=== PATIENT | female | born 1965 | race Caucasian/White ===

== ENCOUNTER 2017-08-06 07:13 | Emergency (ER) | payer BC ==
[2017-08-06 07:26] VITALS: BP 121/76
--- NOTE | 2017-08-06 07:50 | UC ---
Respiratory Complaint HPI - HPI Summary HPI Summary: Pt with 10 days cough, productive green sputum, fatigue Pt states intermittent wheezing. chills, no fever. mild nausea, decreased po. No rash No abd pain. started with sinus congestion, now resolved Pt's medications reviewed this visit - History of Current Complaint Chief Complaint: UCRespiratory Stated Complaint: COUGH Time Seen by Provider: 08/06/17 07:22 Hx Obtained From: Patient Timing: Constant Severity Initially: Mild Severity Currently: Moderate Character: Cough: Productive, Sputum Description: - green Associated Signs And Symptoms: Positive: Chills, Wheezing, Nasal Congestion - Allergies/Home Medications Allergies/Adverse Reactions: Allergies Allergy/AdvReac Type Severity Reaction Status Date / Time No Known Allergies Allergy Verified 08/06/17 07:20 Home Medications: Home Medications Guaifenesin/Pseudo 600/60(NF) [Mucinex D 600/60 (NF)] 2 tab PO Q4H PRN 08/06/17 [History Confirmed 08/06/17] PMH/Surg Hx/FS Hx/Imm Hx Previously Healthy: Yes - Surgical History Surgical History: Yes Surgery Procedure, Year, and Place: hysterectomy, bowel resection, pins placed in hip, colostomy - Social History Occupation: Employed Full-time Lives: With Family Alcohol Use: Occasionally Substance Use Type: None Smoking Status (MU): Never Smoked Tobacco - Immunization History Most Recent Influenza Vaccination: not this season Review of Systems Constitutional: Chills, Fatigue ENT: Sinus Congestion Respiratory: Cough, Other - wheeze Cardiovascular: Negative Gastrointestinal: Negative Genitourinary: Negative Motor: Negative Neurovascular: Negative Musculoskeletal: Negative Neurological: Negative All Other Systems Reviewed And Are Negative: Yes Physical Exam Triage Information Reviewed: Yes Appearance: Well-Appearing - tired appearing, No Pain Distress, Well-Nourished Vital Signs: Initial Vital Signs Temp 98.6 F 08/06/17 07:21 Pulse 99 08/06/17 07:21 Resp 16 08/06/17 07:21 BP 121/76 08/06/17 07:21 Pulse Ox 98 08/06/17 07:21 Vital Signs Reviewed: Yes Eye Exam: Normal Eyes: Positive: Conjunctiva Clear ENT Exam: Normal ENT: Positive: Normal ENT inspection, Hearing grossly normal, Pharynx normal Dental Exam: Normal Neck exam: Normal Neck: Positive: Supple, Nontender Respiratory Exam: Normal Respiratory: Positive: Chest non-tender, Normal breath sounds, No respiratory distress, No accessory muscle use, Wheezing - few scattered wheeze + BS throughout speaking full, easy sentences Cardiovascular Exam: Normal Cardiovascular: Positive: RRR, No Murmur Abdominal Exam: Normal Abdomen Description: Positive: Nontender, No Organomegaly, Soft Musculoskeletal Exam: Normal Neurological Exam: Normal Psychological Exam: Normal Skin Exam: Normal UC Diagnostic Evaluation - Laboratory O2 Sat by Pulse Oximetry: 98 Respiratory Course/Dx - Course Course Of Treatment: Pt with 10 day cough with green sputum. ongoing fatigue. vss. wheeze scattered on exam. will rx abx, albuterol. otc cough suppression. hydrate. secretion precaution - Differential Dx/Diagnosis Provider Diagnoses: bronchitis Discharge - Discharge Plan Condition: Stable Disposition: HOME Prescriptions: Albuterol HFA INHALER* [Ventolin HFA Inhaler*] 1 puff INH Q4H PRN #1 mdi PRN Reason: wheeze Azithromycin TAB* [Zithromax TAB (Z-GRAEME) 250 mg #6 tabs] 2 tab PO .TODAY, THEN 1 DAILY #1 graeme Spacer/Aerosol-Holding Chamber [Aerochamber Mv] 1 mis PO Q4HR #1 mis Patient Education Materials: Acute Bronchitis (ED) Referrals: GISELA Lemus [Primary Care Provider] - Additional Instructions: - Stay well hydrated. Drink plenty of non-alcoholic, non-caffinated beverages - take antibiotics as prescribed - USe inhaler - 2 puffs every 4 hours today, then eveyr 4 hours as needed - Okay to use over the counter medication for cough - After you have been on antibiotics for 2 days - change your toothbrush and your pillowcase. These infections are spread by secretions - do NOT share eating or drinking utensils - clean items you share with other people such as iphone, computer mouse, TV remote, etc - Alternate ibuprofen (Advil, motrin) 600mg and tylenol eveyry 3 hours for pain or fever. - Call your doctor to schedule a follow-up appointment. Call your doctor or return with questions or concerns
== END 2017-08-06 08:07 | disposition home or self-care (01) ==
LOC: UCCORT 07:13
DX: J40 Bronchitis, not specified as acute or chronic (principal)
CPT/HCPCS: 99212; G0463

== ENCOUNTER 2017-09-24 08:11 | Emergency (ER) | payer BC ==
[2017-09-24 08:28] VITALS: BP 133/86
--- NOTE | 2017-09-24 08:48 | UC ---
Ear Complaint HPI - HPI Summary HPI Summary: Pt presents with mild vertigo that started this morning. Pt states worse when moves head quickly. states feels like eyes need to catch up. mild nausea pt states seemed a bit worse looking at computer. Pt with mild sense head is "filling up." no fevers, chills, rash. No cp, sob. No abd pain no n/v/d no meds taking. PT states was recently in [place] - was with sick contacts and thinks was dehydrated there. Pt denies other complaints. No kline, vision changes. No sore throat, sinus congestion. No h/o similar. 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 - Surgical History Surgical History: Yes Surgery Procedure, Year, and Place: hysterectomy, bowel resection, pins placed in hip, colostomy - Family History Known Family History: Positive: Hypertension - Social History Occupation: Employed Full-time Lives: With Family Alcohol Use: Occasionally Substance Use Type: None Smoking Status (MU): Never Smoked Tobacco - Immunization History Most Recent Influenza Vaccination: not this season Review of Systems Constitutional: Negative Skin: Negative Eyes: Negative ENT: Negative Respiratory: Negative Cardiovascular: Negative Neurovascular: Other - dizziness All Other Systems Reviewed And Are Negative: Yes Physical Exam Triage Information Reviewed: Yes Appearance: Well-Appearing, No Pain Distress, Well-Nourished Vital Signs: Initial Vital Signs Temp 98 F 09/24/17 08:23 Pulse 70 09/24/17 08:23 Resp 18 09/24/17 08:23 BP 133/86 09/24/17 08:23 Pulse Ox 100 09/24/17 08:23 Vital Signs Reviewed: Yes Eyes: Positive: Conjunctiva Clear, Other: - BIJU, EOM intact and full right sided 3 beat nystagmus, extinguising No photophobia no injection ENT Exam: Normal ENT: Positive: Normal ENT inspection, Hearing grossly normal, Other - left TM + fluid no erythema right TM no fluid mmoist no exudate Dental Exam: Normal Neck exam: Normal Neck: Positive: Supple, Nontender, No Lymphadenopathy Respiratory Exam: Normal Respiratory: Positive: Chest non-tender, Lungs clear, Normal breath sounds, No respiratory distress, No accessory muscle use Cardiovascular Exam: Normal Cardiovascular: Positive: RRR, No Murmur, Pulses Normal, Other: - no bruits Abdominal Exam: Normal Abdomen Description: Positive: Nontender, No Organomegaly Bowel Sounds: Positive: Present Musculoskeletal Exam: Normal Neurological Exam: Normal Neurological: Positive: Alert, Other: - no difficulty with balance CN 2-12 intact and full no difficulty with balance or ambulating Psychological Exam: Normal Psychological: Positive: Normal Response To Family Skin Exam: Normal Ear Complaint Course/Dx - Course Course Of Treatment: Pt with dizziness with head and eye movement. Pt with scant fluids in ear. pt with horizontal nystagmus. Will recommend flonase. decongestant. hydrate. d/w pt regarding and change in sx to ED. pt comfortable and in agreement with plan - Differential Dx/Diagnosis Provider Diagnoses: vertigo. ear congested Discharge - Discharge Plan Condition: Stable Disposition: HOME Prescriptions: Meclizine HCl [Meclizine 25] 25 mg PO Q8HR #15 tab Patient Education Materials: Vertigo (ED) Referrals: No Primary Care Phys,NOPCP [Primary Care Provider] - Additional Instructions: -The doctor that evaluated you today thinks your symptoms are related to vertigo and related to fluid in your ears -It is recommended you use nasal spray daily. -It is recommended you use a decongestant such as Claritin D, Lita-d, or Sudafed. It is okay to try just Claritin with the nasal spray first if the decongestant makes you shaky - Take meclizine as prescribed for dizziness - Stay well hydrated. Drink plenty of non-alcoholic, non-caffinated beverages - If you develop headaches, vomiting, fevers, vision changes or any other symptoms, it is recommended you go to the emergency department for additional evaluation or treatment - contact your doctor or return with question or concerns
== END 2017-09-24 09:14 | disposition home or self-care (01) ==
LOC: UCCORT 08:11
DX: R42 Dizziness and giddiness (principal); H83.8X2 Other specified diseases of left inner ear
CPT/HCPCS: 99212; G0463

== ENCOUNTER 2019-08-24 17:47 | Emergency (ER) | payer BC, OTHER ==
--- OUTSIDE RECORDS SUMMARY | 2019-08-24 19:33 | XMS REPORT | Continuity of Care Document ---
:1965 External Reference #:[id number] Author Name Kai York PA (transmitted by agent of provider Gatito Schwartz) Address [address], [address] [place] [address] Care Team Providers Name Role Phone Emelyn Louis, DIRECTOR OF CORPORATE REAL ESTATE - Family Care Team Information Videotape Operator [phone] Problems Active Problems Provider Date Benign essential hypertension Kai York PA Onset: 07/21/2019 Social History Type Date Description Comments Sex Unknown Tobacco Use Start: Unknown Never Smoked Cigarettes ETOH Use Currently consumes alcohol socially Tobacco Use Start: Unknown Patient has never smoked Recreational Drug Use Denies Drug Use Smoking Status Reviewed: 07/21/19 Patient has never smoked Allergies, Adverse Reactions, Alerts Description No Known Drug Allergies Medications Active Medications SIG Qnty Indications Ordering Provider Date Lisinopril 1 by mouth every Unknown 5mg Tablets day Calcium 600 + D 1 by mouth once Unknown daily [id number] Tablets Humira use under the Unknown 40mg/0.8ML PSKT skin every other week Vitamin Deficiency 1ml every month Unknown Injectable System-B12 1000mcg/ML Kit Immunizations Description No Information Available Vital Signs Date Vital Result Comment 07/21/2019 8:45am BP Systolic Sitting Right Arm 118 mmHg BP Diastolic Sitting Right Arm 78 mmHg Heart Rate 62 /min Respiratory Rate 16 /min Height 69 inches 5'9" Weight 133.00 lb BMI (Body Mass Index) 19.6 kg/m2 BSA (Body Surface Area) 1.74 m2 [place] body weight in kilograms 66 kg O2 % BldC Oximetry 98 % ra 01/19/2014 1:28pm BP Systolic Sitting Left Arm 122 mmHg BP Diastolic Sitting Left Arm 80 mmHg Height 69 inches 5'9" Weight 131.00 lb BMI (Body Mass Index) 19.3 kg/m2 BSA (Body Surface Area) 1.73 m2 Results Description No Information Available Procedures Date Code Description Status 07/21/2019 24240 EKG-Tracing And Report Completed Medical Devices Description No Information Available Encounters Type Date Location Provider Dx Diagnosis Office Visit 07/21/2019 Cardiology Office Kai York R07.9 Chest pain , 8:20a B., PA unspecified I10 Essential (primary) hypertension R60.0 Localized edema Assessments Date Code Description Provider 07/21/2019 R07.9 Chest pain, unspecified Kai York PA 07/21/2019 I10 Essential (primary) hypertension Kai York PA 07/21/2019 R60.0 Localized edema Kai York PA Plan of Treatment Future Appointment(s):08/20/2019 8:40 am - Kai York, JOHN at Cardiology Gxbxfa9607/21/2019 - Kai York, PAR07.9 Chest pain, unspecifiedNew Orders:Nuclear Stress Test, Cardiolite, Exercise, Ordered: Comments:We will order a nuclear stress test to evaluate the patient's ischemic potential.I10 Essential (primary) hypertensionComments:BP goal is < 130/80 mmHg. No changes.R60.0 Localized edemaNew Orders:Echocardiogram, Ordered : 07/21/19Comments:Use of compression stockings is recommended. Will obtain echocardiogram.AllFollow up:After testing Functional Status Functional Condition Comment Date Status Glasses Active Mental Status Description No Information Available Referrals Description No Information Available
--- OUTSIDE RECORDS SUMMARY | 2019-08-24 19:33 | XMS REPORT | Continuity of Care Document ---
:1965 External Reference #:[id number] Author Name Kai York PA (transmitted by agent of provider Gatito Schwartz) Address [address], [address] [place] [address] Care Team Providers Name Role Phone Emelyn Louis, LECTURER OF [place] - Family Care Team Information Nurse Midwife/Clinical Instructor Problems Active Problems Provider Date Benign essential hypertension Kai York PA Onset: 07/21/2019 Social History Type Date Description Comments Sex Unknown Tobacco Use Start: Unknown Never Smoked Cigarettes ETOH Use Currently consumes alcohol socially Tobacco Use Start: Unknown Patient has never smoked Recreational Drug Use Denies Drug Use Smoking Status Reviewed: 07/28/19 Patient has never smoked Allergies, Adverse Reactions, Alerts Description No Known Drug Allergies Medications Active Medications SIG Qnty Indications Ordering Provider Date Omeprazole 1 by mouth 30caps R07.9 Gatito Schwartz 08/20/2019 20mg Capsules every day [facility]thieu Marin, [facility] Lisinopril 1 by mouth Unknown 5mg Tablets every day Calcium 600 + D 1 by mouth once Unknown daily [id number] Tablets Humira use under the Unknown 40mg/0.8ML PSKT skin every other week Vitamin Deficiency 1ml every month Unknown Injectable System-B12 1000mcg/ML Kit Fluconazole 1 by mouth Unknown 100mg Tablets every day until gone Immunizations Description No Information Available Vital Signs Date Vital Result Comment 08/20/2019 8:55am BP Systolic Sitting Left Arm 120 mmHg BP Diastolic Sitting Left Arm 80 mmHg Heart Rate 75 /min Respiratory Rate 14 /min Height 69 inches 5'9" Weight 132.00 lb BMI (Body Mass Index) 19.5 kg/m2 BSA (Body Surface Area) 1.73 m2 [place] body weight in kilograms 66 kg O2 % BldC Oximetry 97 % 07/28/2019 4:20pm BP Systolic 152 mmHg BP Diastolic 86 mmHg Body Temperature 98.7 F Heart Rate 61 /min Respiratory Rate 20 /min Height 69 inches 5'9" Weight 134.25 lb BMI (Body Mass Index) 19.8 kg/m2 BSA (Body Surface Area) 1.74 m2 [place] body weight in kilograms 66 kg O2 % BldC Oximetry 100 % Pain Level 5 Rt wrist Results Description No Information Available Procedures Date Code Description Status 08/04/2019 72915 Echocardiogram Complete Completed 08/04/2019 43640 Stress Test Interpre And Report Only Completed 08/04/2019 58160 Stress Test Physician Super Only Completed 08/04/2019 25925 Myocardial Imaging Tomographic Multiple Study AT [place] Completed Stress 07/21/2019 20808 EKG-Tracing And Report Completed Medical Devices Description No Information Available Encounters Type Date Location Provider Dx Diagnosis Office Visit 08/20/2019 Cardiology Office Kai York R07.9 Chest pain , 8:40a B., PA unspecified I10 Essential (primary) hypertension R60.0 Localized edema Office Visit 07/28/2019 4:15p Walk In [facility], R22.31 Localized Clinic Camryn M., CRYSTAL GAZER swelling, mass and lump, right upper limb M25.531 Pain in right wrist Office Visit 07/21/2019 8:20a Cardiology Office Chela R07.9 Chest pain, Cristinalyss Татьяна., PA unspecified I10 Essential (primary) hypertension R60.0 Localized edema Assessments Date Code Description Provider 08/20/2019 R07.9 Chest pain, unspecified Kai York., PA 08/20/2019 I10 Essential (primary) hypertension Kai York., PA 08/20/2019 R60.0 Localized edema Kai York., PA 08/04/2019 R07.9 Chest pain, unspecified Gatito Schwartz M.D., [facility] 07/28/2019 R22.31 Localized swelling, mass and lump, [facility], Camryn M., CRYSTAL GAZER right upper limb 07/28/2019 M25.531 Pain in right wrist Camryn Alfaro, MAGGIE 07/21/2019 R07.9 Chest pain, unspecified Kai York PA 07/21/2019 I10 Essential (primary) hypertension Kai York PA 07/21/2019 R60.0 Localized edema Kai York PA Plan of Treatment Future Appointment(s):11/09/2019 2:20 pm - Gatito Schwartz M.D., FACC at Cardiology Okjspm1608/20/2019 - Kai York, PAR07.9 Chest pain, unspecifiedNew Medication:Omeprazole 20 mg - 1 by mouth every dayComments:Will trial omeprazole. She will try to dietary (avoidance of spicy foods, caffeine, chocolate) and lifestyle modifications (elevation of head of the bed). She will call with recurrence of symptoms.I10 Essential (primary) hypertensionComments: BP goal is <130/80 mmHg. No changes.R60.0 Localized edemaComments:Use of compression stockings is recommended.AllFollow up:2 months Functional Status Functional Condition Comment Date Status Glasses Active Dependent with all ADL's Active Mental Status Description No Information Available Referrals Description No Information Available
--- OUTSIDE RECORDS SUMMARY | 2019-08-24 19:33 | XMS REPORT | Continuity of Care Document ---
:1965 External Reference #:[id number] Author Name Camryn Alfaro FNP (transmitted by agent of provider Rhoda Garnett) Address [address] [place] [address] Care Team Providers Name Role Phone Emelyn Louis, CHROME TANNER - Family Care Team Information Clerical Supervisor Problems Active Problems Provider Date Benign essential [...] D 1 by mouth once Unknown daily [id number] Tablets Humira use under the Unknown 40mg/0.8ML PSKT skin every other week Vitamin Deficiency 1ml every month Unknown Injectable System-B12 1000mcg/ML Kit Fluconazole 1 by mouth every Unknown 100mg Tablets day until gone Immunizations Description No Information Available Vital Signs Date Vital Result Comment 07/28/2019 4:20pm BP Systolic 152 mmHg BP Diastolic 86 mmHg Body Temperature 98.7 F Heart Rate 61 /min Respiratory Rate 20 /min Height 69 inches 5'9" Weight 134.25 lb BMI (Body Mass Index) 19.8 kg/m2 BSA (Body Surface Area) 1.74 m2 [place] body weight in kilograms 66 kg O2 % BldC Oximetry 100 % Pain Level 5 Rt wrist 07/21/2019 8:45am BP Systolic Sitting Right Arm 118 mmHg BP Diastolic Sitting Right Arm 78 mmHg Heart Rate 62 /min Respiratory Rate 16 /min Height 69 inches 5'9" Weight 133.00 lb BMI (Body Mass Index) 19.6 kg/m2 BSA (Body Surface Area) 1.74 m2 [place] body weight in kilograms 66 kg O2 % BldC Oximetry 98 % ra Results Description No Information Available Procedures Date Code Description Status 07/21/2019 43948 EKG-Tracing And Report Completed Medical Devices Description No Information Available Encounters Type Date Location Provider Dx Diagnosis Office Visit 07/28/2019 Walk In Clinic Dominic, R22.31 Localized 4:15p Camryn M., OLERICULTURIST swelling, mass and lump, right upper limb M25.531 Pain in right wrist Office Visit 07/21/2019 8:20a Cardiology Office Chela R07.9 Chest pain, Kai Gaston, PA unspecified I10 Essential (primary) hypertension R60.0 Localized edema Assessments Date Code Description Provider 07/28/2019 R22.31 Localized swelling, mass and lump, [facility]-Makenziem, Camryn M., OLERICULTURIST right upper limb 07/28/2019 M25.531 Pain in right wrist Means-Helm, Camryn M., OLERICULTURIST 07/21/2019 R07.9 Chest pain, unspecified Kai York, PA 07/21/2019 I10 Essential (primary) hypertension Kai York, PA 07/21/2019 R60.0 Localized edema Kai York PA Plan of Treatment Future Appointment(s):08/20/2019 8:40 am - Kai York PA at Cardiology Ixrwdl1207/28/2019 - [facility]-Herm[facility] Camryn MMaite, FNPR22.31 Localized swelling, mass and lump, right upper limbM25.531 Pain in right wrist Functional Status Functional Condition Comment Date Status Glasses Active Mental Status Description No Information Available Referrals Description No Information Available
[2019-08-24 19:38] VITALS: BP 131/83
--- NOTE | 2019-08-24 20:23 | UC ---
Skin Complaint HPI - HPI Summary HPI Summary: Patient is a 54yo female presenting with L wrist pain x5 days. Patient states skin over dorsal radius was red and tender at first but that it has resolved. Notes swelling in the same area that persists. Denies tenderness to palpation now but notes pain with wrist flexion and extension. Denies decreased ROM and strength. Deneis injury or trauma. Patient states she was concerned for cellulitis because she had in back in july. Denies fever, chills, n/v. She takes humira for crohn's disease. Denies h/o gout and arthritis. - History of Current Complaint Chief Complaint: UCSkin Stated Complaint: LEFT HAND SKIN COMPLAINT Hx Obtained From: Patient Hx Last Menstrual Period: n/a Onset/Duration: Sudden Onset, Lasting Days Onset Severity: Moderate Current Severity: Moderate Pain Intensity: 6 Pain Scale Used: 0-10 Numeric - Allergy/Home Medications Allergies/Adverse Reactions: Allergies Allergy/AdvReac Type Severity Reaction Status Date / Time No Known Allergies Allergy Verified 08/24/19 19:37 Home Medications: Home Medications Adalimumab (NF) [Humira Pen (NF)] 40 mg SUBCUT SEE INSTRUCTIONS 08/24/19 [ History Confirmed 08/24/19] Calcium Carbonate [Calcium] 500 mg PO BID 08/24/19 [History Confirmed 08/24/19] Cyanocobalamin INJ * [Vitamin B12 INJ *] 1,000 mcg IM MONTHLY 08/24/19 [History Confirmed 08/24/19] Lisinopril TAB* [Prinivil TAB*] 5 mg PO DAILY 08/24/19 [History Confirmed ] Meclizine HCl [Meclizine 25] 25 mg PO Q8HR PRN 08/24/19 [History Confirmed 08/24] PMH/Surg Hx/FS Hx/Imm Hx GI/ History: Other - Crohn's - Surgical History Surgical History: Yes Surgery Procedure, Year, and Place: hysterectomy, bowel resection, pins placed in hip, colostomy - Family History Known Family History: Positive: Unknown, Hypertension - Social History Alcohol Use: Occasionally Substance Use Type: None Smoking Status (MU): Never Smoked Tobacco - Immunization History Most Recent Influenza Vaccination: not this season Review of Systems All Other Systems Reviewed And Are Negative: No Constitutional: Positive: Negative Skin: Positive: Other - redness of L wrist. Negative: Bruising Respiratory: Positive: Negative Cardiovascular: Positive: Negative Musculoskeletal: Positive: Arthralgia - L wrist, Edema - dorsal L wrist. Negative: Decreased ROM Neurological: Positive: Negative. Negative: Weakness, Paresthesia, Numbness Physical Exam Triage Information Reviewed: Yes Appearance: Well-Appearing, No Pain Distress, Well-Nourished Vital Signs: Initial Vital Signs Temp 97.7 F 08/24/19 19:34 Pulse 65 08/24/19 19:34 Resp 15 08/24/19 19:34 BP 131/83 08/24/19 19:34 Pulse Ox 100 08/24/19 19:34 Vital Signs Reviewed: Yes Eyes: Positive: Conjunctiva Clear ENT: Positive: Hearing grossly normal Neck: Positive: Supple Respiratory: Positive: No respiratory distress Cardiovascular: Positive: Pulses Normal - strong radial pulses b/l, Brisk Capillary Refill Musculoskeletal: Positive: Strength Intact, ROM Intact, Edema @ - dorsal L wrist and proximal 1st metacarpal, Other: - pain with flexion and extension of L wrist. no tenderness to palpation. Neurological Exam: Other - sensation grossly intact Neurological: Positive: Alert Psychological: Positive: Age Appropriate Behavior Skin Exam: Normal - no erythema or ecchymosis noted Diagnostics - Radiology L wrist Radiology Interpretation Completed By: ED Physician, Radiologist Summary of Radiographic Findings: mild tissue swelling. negative fx. negative degenerative process Course/Dx - Course Course Of Treatment: No sign of skin infection. Initial x-ray read as negative. Informed patient that official report will be obtained tomorrow and she'll be notified if any abnormalities. Instructed to continue with symptomatic treatment and follow up with pcp or GI physician for further evaluation if symptoms persist. Patient voiced understanding and agreed with the treatment plan. - Diagnoses Provider Diagnosis: Pain and swelling of left wrist Discharge ED - Sign-Out/Discharge Documenting (check all that apply): Patient Departure All imaging exams completed and their final reports reviewed: No - Discharge Plan Condition: Stable Disposition: HOME Patient Education Materials: Swollen Joint (ED) Referrals: Emelyn Louis [Primary Care Provider] - If Needed Additional Instructions: Your xrays were read by the provider who treated you tonight. They were initially read as normal. The final report will be obtained tomorrow morning and you will be notified with any abnormalities. As discussed, it is unclear what is causing your joint pain today. There is no sign of skin infection. You may ice and use your splint to help alleviate pain. You may take over the counter pain medications as directed for pain relief as well. Follow up with your gastrointestinal physician or PCP is recommended if symptoms persist. - Billing Disposition and Condition Condition: STABLE Disposition: Home
--- NOTE | 2019-08-25 11:43 | ED ---
Progress - Progress Note Progress Note: Final xray reading: No acute fx. Course/Dx - Diagnoses Provider Diagnoses: Pain and swelling of left wrist Discharge ED - Sign-Out/Discharge Documenting (check all that apply): Patient Departure All imaging exams completed and their final reports reviewed: Yes - Discharge Plan Condition: Stable Disposition: HOME Patient Education Materials: Swollen Joint (ED) Referrals: Emelyn Louis [Primary Care Provider] - If Needed Additional Instructions: Your xrays were read by the provider who treated you tonight. They were initially read as normal. The final report will be obtained tomorrow morning and you will be notified with any abnormalities. As discussed, it is unclear what is causing your joint pain today. There is no sign of skin infection. You may ice and use your splint to help alleviate pain. You may take over the counter pain medications as directed for pain relief as well. Follow up with your gastrointestinal physician or PCP is recommended if symptoms persist. - Billing Disposition and Condition Condition: STABLE Disposition: Home
== END 2019-08-24 21:15 | disposition home or self-care (01) ==
LOC: UCCORT 17:47
DX: M25.532 Pain in left wrist (principal); M25.432 Effusion, left wrist; K50.90 Crohn's disease, unspecified, without complications; Z79.899 Other long term (current) drug therapy
CPT/HCPCS: 99211; G0463